=== PATIENT | male | born 1955 | race Caucasian/White ===

== ENCOUNTER 2016-07-29 06:58 | Emergency (ER) | payer OTHER ==
[2016-07-29 06:58] VITALS: BMI 25.8
[2016-07-29 07:19] VITALS: PULSE 88; TEMP 98.1; O2SAT 100
[2016-07-29 07:38] VITALS: RESP 14
--- NOTE | 2016-07-29 08:18 | ED PDOC ---
Lower Extremity Pain/Injury Time Seen by Provider: 07/29/16 07:19 Chief Complaint (Nursing): Lower Extremity Problem/Injury Chief Complaint (Provider): Lower Extremity Problem/Injury History Per: Patient History/Exam Limitations: no limitations Onset/Duration Of Symptoms: Hrs Current Symptoms Are (Timing): Still Present Severity: Mild Additional Complaint(s): Patient is a 60 year old male who presents to ED for evaluation of right leg pain that began this morning. Patient reports pain is from lower thigh to upper calf, worsened with movement and walking. Denies injury, twist or falls. States that he woke up with pain with no other associated symptoms including fever, redness, swelling, hip pain, ankle pain or foot pain. Past Medical History Reviewed: Historical Data, Nursing Documentation, Vital Signs Vital Signs: Last Vital Signs Temp 98.1 F 07/29/16 07:29 Pulse 88 07/29/16 07:29 Resp 14 07/29/16 07:29 BP 164/94 H 07/29/16 07:29 Pulse Ox 100 07/29/16 07:29 - Medical History PMH: Diabetes, HTN - Surgical History Other surgeries: Rotator cuff surgery 2 years ago - Family History Family History: States: No Known Family Hx - Living Arrangements Living Arrangements: With Family - Immunization History Hx Tetanus Toxoid Vaccination: No Hx Influenza Vaccination: No Hx Pneumococcal Vaccination: No - Home Medications Home Medications: Ambulatory Orders Medication Instructions Recorded Famotidine [Pepcid] 20 mg PO HS #20 tab 05/30/14 Ibuprofen [Motrin] 600 mg PO Q6H #20 tab 05/30/14 Januvia 50 mg PO DAILY 05/30/14 Metformin 1,000 mg PO BID 05/30/14 Naproxen [Naprosyn] 500 mg PO BID PRN #14 tablet 07/29/16 - Allergies Allergies/Adverse Reactions: Allergies Allergy/AdvReac Type Severity Reaction Status Date / Time No Known Allergies Allergy Verified 05/30/14 11:31 Review of Systems ROS Statement: Except As Marked, All Systems Reviewed And Found Negative Constitutional: Negative for: Fever, Chills Cardiovascular: Negative for: Palpitations Respiratory: Negative for: Shortness of Breath Musculoskeletal: Positive for: Leg Pain. Negative for: Back Pain, Foot Pain Skin: Negative for: Rash, Bruising Neurological: Negative for: Weakness, Numbness Physical Exam - Reviewed Nursing Documentation Reviewed: Yes Vital Signs Reviewed: Yes - Physical Exam Appears: Positive for: Non-toxic, No Acute Distress Skin: Positive for: Normal Color, Warm Eye Exam: Positive for: Normal appearance Neck: Positive for: Normal Extremity: Positive for: Normal ROM (Right hip, knee and ankle ), Capillary Refill (less than 2 seconds ), Other (mild tender distal thigh and proximal calf ). Negative for: Deformity, Swelling Neurologic/Psych: Positive for: Alert, Oriented. Negative for: Motor/Sensory Deficits - ECG O2 Sat by Pulse Oximetry: 100 (RA) Pulse Ox Interpretation: Normal Medical Decision Making Medical Decision Making: Time: 729 Initial impression: Leg pain r/o DVT and fracture Initial plan: -- Knee Xray -- Toradol IM -- Femur Min 2 View -- Duplex XRays neg as read by MD BARAHONA Duplex neg for DVT prelim read Improved w toradol. MENG wrap applied, has cane for ambulatory support. Patients niece is FP resident at [facility] [address] [place], pt asked to inform her, discussed. Refer to ortho if no improvement in 3-4 days. Scribe Attestation: Documented by Jessica Patel acting as a scribe for Kenny Trinidad DO MD Scribe Attestation: All medical record entries made by the Scribe were at my direction and personally dictated by me. I have reviewed the chart and agree that the record accurately reflects my personal performance of the history, physical exam, medical decision making, and the department course for this patient. I have also personally directed, reviewed, and agree with the discharge instructions and disposition. Disposition - Clinical Impression Clinical Impression: Knee pain, acute - Patient ED Disposition Is Patient to be Admitted: No Counseled Patient/Family Regarding: Studies Performed, Diagnosis, Need For Followup, Rx Given - Disposition Referrals: Gopal Humphreys III, MD [Staff Provider] - Disposition: Routine/Home Disposition Time: 09:30 Condition: STABLE Additional Instructions: Use MENG wrap as directed for pain. Return to ER for any worse or new symptoms. Take medication as directed. Followup with PMD or orthopedist for further testing. Prescriptions: Naproxen [Naprosyn] 500 mg PO BID PRN #14 tablet PRN Reason: Pain, Moderate (4-7) Instructions: Knee Pain (ED) Forms: [facility] Visits Discharge (Polish)
[2016-07-29 08:29] VITALS: BP 146/93
--- NOTE | 2016-07-29 10:42 | RAD ---
PROCEDURE: Right Knee Radiographs. HISTORY: R leg pain COMPARISON: None. FINDINGS: BONES: Normal. No fracture. JOINTS: Normal. No osteoarthritis. JOINT EFFUSION: Possible small suprapatellar joint effusion. OTHER FINDINGS: None. IMPRESSION: No evidence of acute fracture or dislocation.
--- NOTE | 2016-07-29 11:00 | RAD ---
PROCEDURE: Right Femur Radiographs. HISTORY: R leg/ knee pain COMPARISON: None. TECHNIQUE: AP and Lateral Radiographs of the right femur. FINDINGS: FEMUR: Normal. No fracture. SOFT TISSUES: Normal. OTHER FINDINGS: None. IMPRESSION: Unremarkable radiographs of the right femur.
--- NOTE | 2016-07-29 12:52 | US ---
PROCEDURE: Right lower extremity venous duplex Doppler. HISTORY: R leg pain COMPARISON: None available. TECHNIQUE: Common femoral, superficial femoral, popliteal and posterior tibial veins were evaluated. Flow was assessed with color Doppler, compressibility, assessment of phasic flow and augmentation response. FINDINGS: COMMON FEMORAL VEIN: Unremarkable. SUPERFICIAL FEMORAL VEIN: Unremarkable. POPLITEAL VEIN: Unremarkable. POSTERIOR TIBIAL VEIN: Unremarkable. OTHER FINDINGS: None. IMPRESSION: No evidence of deep venous thrombosis in the right lower extremity.
== END 2016-07-29 10:00 | disposition home or self-care (01) ==
LOC: H.ER 06:58
DX: M79.604 Pain in right leg (principal); M25.561 Pain in right knee; E11.9 Type 2 diabetes mellitus without complications; I10 Essential (primary) hypertension; Z79.84 Long term (current) use of oral hypoglycemic drugs; Z79.899 Other long term (current) drug therapy

== ENCOUNTER 2016-07-30 21:08 | Emergency (ER) | payer OTHER ==
[2016-07-30 21:13] VITALS: BMI 28.7
[2016-07-30 21:23] VITALS: BP 157/95; PULSE 86; RESP 18; TEMP 96.6; O2SAT 99
--- NOTE | 2016-07-30 22:32 | ED PDOC ---
Lower Extremity Pain/Injury Time Seen by Provider: 07/30/16 21:21 Chief Complaint (Nursing): Lower Extremity Problem/Injury Chief Complaint (Provider): Right leg pain History Per: Patient History/Exam Limitations: no limitations Onset/Duration Of Symptoms: Days Current Symptoms Are (Timing): Still Present Severity: Severe Pain Scale Rating Of: 8 Additional Complaint(s): Pt states he has been taking naproxen as prescribed but it is not helping. PT reports pain from mid-thigh to mid-calf. PT reports being seen here yesterday. X -ray of the knee and femur normal. US (-) for DVT. Past Medical History Reviewed: Historical Data, Nursing Documentation, Vital Signs Vital Signs: Last Vital Signs Temp 96.6 F L 07/30/16 21:21 Pulse 86 07/30/16 21:21 Resp 18 07/30/16 21:21 BP 157/95 H 07/30/16 21:21 Pulse Ox 99 07/30/16 21:21 - Medical History PMH: Diabetes, HTN - Surgical History Surgical History: No Surg Hx - Family History Family History: States: No Known Family Hx - Living Arrangements Living Arrangements: With Family - Social History Current smoker - smoking cessation education provided: No Alcohol: None Drugs: Denies - Immunization History Hx Tetanus Toxoid Vaccination: No Hx Influenza Vaccination: No Hx Pneumococcal Vaccination: No - Home Medications Home Medications: Ambulatory Orders Medication Instructions Recorded Famotidine [Pepcid] 20 mg PO HS #20 tab 05/30/14 Ibuprofen [Motrin] 600 mg PO Q6H #20 tab 05/30/14 Januvia 50 mg PO DAILY 05/30/14 Metformin 1,000 mg PO BID 05/30/14 Naproxen [Naprosyn] 500 mg PO BID PRN #14 tablet 07/29/16 traMADol [Ultram] 50 mg PO Q6H PRN #15 tab 07/30/16 - Allergies Allergies/Adverse Reactions: Allergies Allergy/AdvReac Type Severity Reaction Status Date / Time No Known Allergies Allergy Verified 05/30/14 11:31 Review of Systems ROS Statement: Except As Marked, All Systems Reviewed And Found Negative Musculoskeletal: Positive for: Leg Pain (Right ) Physical Exam - Reviewed Nursing Documentation Reviewed: Yes Vital Signs Reviewed: Yes - Physical Exam Appears: Positive for: Well, Non-toxic, No Acute Distress Head Exam: Positive for: ATRAUMATIC, NORMAL INSPECTION, NORMOCEPHALIC Skin: Positive for: Normal Color, Warm. Negative for: Rash (No ecchymosis ) Eye Exam: Positive for: Normal appearance ENT: Positive for: Normal ENT Inspection Neck: Positive for: Normal, Painless ROM Respiratory: Negative for: Accessory Muscle Use, Respiratory Distress Back: Positive for: Normal Inspection Extremity: Positive for: Tenderness (Posterior right knee). Negative for: Normal ROM (Decreassed knee flexion due to pain ), Deformity, Swelling Neurologic/Psych: Positive for: Alert, Oriented - ECG O2 Sat by Pulse Oximetry: 99 Medical Decision Making Medical Decision Making: Pt asks telegraphic typewriter operator to contact Dr. Rachna Lester. Dr. Lester made aware. Disposition - Clinical Impression Clinical Impression: Right leg pain - Patient ED Disposition Is Patient to be Admitted: No Counseled Patient/Family Regarding: Diagnosis, Need For Followup, Rx Given - Disposition Referrals: Gopal Humphreys III, MD [Staff Provider] - Disposition: Routine/Home Disposition Time: 22:34 Condition: GOOD Prescriptions: traMADol [Ultram] 50 mg PO Q6H PRN #15 tab PRN Reason: Pain Instructions: Leg Pain (ED)
[2016-07-30] MEDS ORDERED: Oxycodone/Acetaminophen 5/325 mg Tab ONE (22:33)
[2016-07-30] MEDS ORDERED: Oxycodone/Acetaminophen 5/325 mg Tab PO STA (22:35)
== END 2016-07-30 22:54 | disposition home or self-care (01) ==
LOC: H.ER 21:08
DX: M79.604 Pain in right leg (principal); E11.9 Type 2 diabetes mellitus without complications; I10 Essential (primary) hypertension; Z79.84 Long term (current) use of oral hypoglycemic drugs